=== PATIENT | female | born 1985 | race Caucasian/White ===

== ENCOUNTER 2018-08-05 10:06 | Emergency (ER) | payer OTHER ==
[2018-08-05 10:16] VITALS: BMI 21.6
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
[2018-08-05 11:22] LABS: BASO % 0.3 % (0-2.0); EOS % 0.5 % (0-4.5); HEMATOCRIT 31.3 % (32.4-45.2); HEMOGLOBIN 9.8 GM/dL (10.7-15.3); LYMPH % 12.9 % (8-40); MCH 21.9 pg (25.7-33.7); MCHC 31.2 g/dl (32.0-36.0); MEAN CELL VOLUME 70.1 fl (80-96); MEAN PLT VOLUME 9.5 fl (7.5-11.1); MONO % 4.1 % (3.8-10.2); NEUT % 82.2 % (42.8-82.8); PLATELET COUNT 168 K/MM3 (134-434); RBC 4.47 M/mm3 (3.60-5.2); RDW 17.5 % (11.6-15.6); WHITE BLOOD COUNT 6.3 K/mm3 (4.0-10.0)
[2018-08-05 11:47] LABS: ALBUMIN 3.8 g/dl (3.4-5.0); ALK PHOS 57 U/L (45-117); ANION GAP 8 MMOL/L (8-16); BILIRUBIN,TOTAL 0.5 mg/dL (0.2-1.0); BLOOD UREA NITROGEN 9 mg/dL (7-18); CALCIUM 8.7 mg/dL (8.5-10.1); CHLORIDE 106 mmol/L (98-107); CO2 24 mmol/L (21-32); CREATININE 0.4 mg/dL (0.55-1.3); GLUCOSE,RANDOM 87 mg/dL (74-106); POTASSIUM 4.2 mmol/L (3.5-5.1); SGOT/AST 9 U/L (15-37); SGPT/ALT 16 U/L (13-61); SODIUM 138 mmol/L (136-145); TOT PROT 7.1 g/dl (6.4-8.2)
[2018-08-05 11:56] LABS: URINE APPEARANCE CLEAR; URINE BILIRUBIN NEGATIVE (<2.0 mg/dL); URINE COLOR LTYELLOW; URINE GLUCOSE (UA) NEGATIVE (NEGATIVE); URINE KETONE NEGATIVE (NEGATIVE); URINE NITRITE NEGATIVE (NEGATIVE); URINE PROTEIN NEGATIVE (NEGATIVE); URINE UROBILINOGEN NEGATIVE mg/dL (0.2-1.0)
[2018-08-05 11:58] LABS: URINE LEUK ESTERASE 2+ (NEGATIVE)
[2018-08-05 12:04] LABS: EPI CELLS RARE /HPF (FEW); URINE MUCUS RARE
[2018-08-05 12:55] LABS: PLATELET ESTIMATE ADEQUATE
[2018-08-05 13:19] VITALS: BP 123/68; PULSE 78; TEMP 98
== END 2018-08-05 13:18 | disposition home or self-care (01) ==
LOC: JER 10:06
DX: O41.8X10 Other specified disorders of amniotic fluid and membranes, first trimester, not applicable or unspecified (principal); R10.9 Unspecified abdominal pain; O26.891 Other specified pregnancy related conditions, first trimester; Y04.2XXA Assault by strike against or bumped into by another person, initial encounter; Y07.03 Male partner, perpetrator of maltreatment and neglect; Y93.9 Activity, unspecified; Y92.9 Unspecified place or not applicable
CPT/HCPCS: 36415; 76801-TC; 80053; 81003; 81015; 85025; 86850; 86900; 86901; 87077; 87086; 99284-25